=== PATIENT | male | born 1940 | race Caucasian/White ===

== ENCOUNTER → 2016-05-04 | Outpatient (CLI) | payer MEDICARE, OTHER ==
[~2016-05-04] MED LIST: ASA325 MG PO; CELEBREX200 MG PO; CLARITIN DPS10 MG PO; OXY IR DPS5 MG PO; PREDNISONE5 MG PO; PROTONIX40 MG PO; SENOKOT S1 TAB PO; THERAPEUTIC MUL1 TAB PO; TYLENOL DPS325 MG PO; ULTRAM DPS50 MG PO; VISTARIL-DPS50 MG PO
== END | disposition home or self-care (01) ==
LOC: RAD.S 05-02 16:01 → PTH.S 13:00 → RAD.S 13:45
DX: H90.41 Sensorineural hearing loss, unilateral, right ear, with unrestricted hearing on the contralateral side (principal)

== ENCOUNTER → 2016-05-17 | Outpatient (CLI) | payer MEDICARE, OTHER | END | disposition home or self-care (01) | LOC: PTH.S 08:16 | DX: Z01.818 Encounter for other preprocedural examination (principal) ==

== ENCOUNTER 2016-05-22 11:05 | Inpatient (IN) | payer MEDICARE, OTHER ==
[~2016-05-22] VITALS: Ht 180.3 cm; Wt 85.7 kg
--- NOTE | 2016-05-22 15:54 | HP ---
ADMIT: 05/22/2016 RM/LOC: W.08 [facility] MR#: [id number] [address] [address] FABIO HAYWARD [address] [place] [address] Pre-OP History and Physical SEX: M AGE: 76 : 1940 DATE OF SERVICE: CHIEF COMPLAINT: Left knee pain. HISTORY OF PRESENT ILLNESS: The patient is a 76-year-old white male with left knee DJD. He has failed nonoperative treatment with medications, cortisone shots, etc,. PAST MEDICAL HISTORY: Significant for GERD, knee arthroscopy, cataract extraction. MEDICATIONS: 1. Aspirin. 2. Multivitamin. 3. Protonix. 4. Pseudoephedrine. SOCIAL HISTORY: The patient does not smoke or regularly drink alcohol. ALLERGIES: NO ALLERGIES. PHYSICAL EXAMINATION: HEENT: Normocephalic and atraumatic. CV: Regular rate and rhythm. LUNGS: Benign. ABDOMEN: Benign. NEUROLOGIC: Awake and oriented x3. MUSCULOSKELETAL: The patient has full extension, 115 degrees of flexion. Slight varus orientation of the knee. Tender in medial joint line and the patellofemoral joint. No ligamentous laxity. IMAGING DATA: X-rays show left knee DJD, [id number] medially, and patellofemoral narrowing. ASSESSMENT AND PLAN: Left knee degenerative joint disease. At this point in time, we will plan left total knee arthroplasty. The patient understands the risks and benefits of the surgical intervention, which include, but not limited to infection, DVT, arthrofibrosis, neurovascular injury, early loosening, , etc., and desires to proceed. He will see Dr. Aguero for preop medical clearance and follow him postoperatively in the hospital for anticoagulation and any medical issues that may arise. Please refer to that H and P for any in-depth medical issues or medication changes. Clifton Hitchcock MD/ mary JOB #: [id number] CC: Clifton Hitchcock, Attending Physician ADMIT: 05/22/2016 RM/LOC: W.08 [facility] MR#: [id number] [address] [address] FABIO HAYWARD [address] [place] [address] Pre-OP History and Physical SEX: M AGE: 76 : 1940 Harsh Aguero, Family Physician
[2016-05-25] MEDS ORDERED: PREDNISONE5 MG PO (21:03)
[2016-05-25] MEDS ORDERED: PROTONIX40 MG PO (21:03)
[2016-05-25] MEDS ORDERED: ASA325 MG PO (21:03)
[2016-05-25] MEDS ORDERED: THERAPEUTIC MUL1 TAB PO (21:04)
[2016-05-25] MEDS ORDERED: TYLENOL DPS325 MG PO (21:04)
[2016-05-25] MEDS ORDERED: CLARITIN DPS10 MG PO (21:04)
[2016-05-25] MEDS ORDERED: CELEBREX200 MG PO (21:04)
[2016-05-25] MEDS ORDERED: SENOKOT S1 TAB PO (21:04)
[2016-05-25] MEDS ORDERED: OXY IR DPS5 MG PO (21:05)
[2016-05-25] MEDS ORDERED: ULTRAM DPS50 MG PO (21:05)
[2016-05-25] MEDS ORDERED: VISTARIL-DPS50 MG PO (21:05)
--- NOTE | 2016-07-03 15:26 | DS ---
ADMIT: 05/22/2016 RM/LOC: 530 [facility] MR#: [id number] 2620 [facility] [address] [place], [place] [address] FABIO HAYWARD Ronald [address] [place] [address] General Discharge Summary SEX: M AGE: 76 : 1940 ADMISSION DATE: 05/22/2016 DISCHARGE DATE: 05/24/2016 REASON FOR ADMISSION: Elective left total knee arthroplasty after failing conservative treatment. PREOPERATIVE DIAGNOSIS: Left knee degenerative joint disease. POSTOPERATIVE DIAGNOSIS: Left knee degenerative joint disease. PROCEDURE PERFORMED: Left total knee arthroplasty. SURGEON: Clifton Hitchcock MD FINANCIAL SERVICES DIRECTOR: Devin Zuniga PA-C ESTIMATED BLOOD LOSS: Minimal. COMPLICATIONS: None. ACTIVE MEDICAL PROBLEMS: Chronic back pain, hyperplastic colon polyp, polymyalgia rheumatica, gastroesophageal reflux disease without esophagitis, and lichen planus. HOSPITAL COURSE: The patient was admitted on 05/22/2016 for elective left total knee arthroplasty done successfully without any complications by Dr. Clifton Htichcock. The patient tolerated the procedure well. The patient postoperatively did not have any pain; however, he was having some nausea from pain medications. He was prescribed Vistaril 50 mg every 6 hours as needed for sleep, restless, pain, nausea, and itching. He did also suffer from acute blood loss anemia. His hemoglobin dropped to 12.6 on 05/24/2016, but he remained hemodynamically stable and did not require blood transfusion. By postoperative day #2, he was safe and participated well with physical therapy. He was stable and ready for discharge home with plans for outpatient physical therapy. DISCHARGE MEDICATIONS: 1. Pantoprazole 40 mg at bedtime. 2. Aspirin 325 mg at bedtime. 3. Prednisone 10 mg every morning. 4. Loratadine 10 mg every day. 5. Multivitamin every day. ADMIT: 05/22/2016 RM/LOC: 530 [facility] MR#: [id number] 2620 [facility] [address] [place], [place] [address] FABIO HAYWARD [address] [place] [address] General Discharge Summary SEX: M AGE: 76 : 1940 6. Celebrex 200 mg twice daily. 7. Senokot 2 tablets twice daily. 8. Tylenol 650 mg every 6 hours as needed for pain. 9. Tramadol 50 mg 1 to 2 tablets every 6 hours as needed for pain. 10.Oxycodone IR 5 to 10 mg every 4 hours as needed for breakthrough pain. 11.Vistaril 50 mg every 6 hours as needed for pain, restlessness, itching, and nausea. DISCHARGE INSTRUCTIONS: The patient was discharged home with plans for outpatient physical therapy per total knee arthroplasty protocol. Follow up in the orthopedic office in 2 weeks for wound check, in 6 weeks with x-ray. Follow up with primary care as directed. PALOMA Rocha / Clifton Hitchcock MD / mary JOB #: [id number] CC: Clifton Hitchcock MD, Attending Physician Harsh Aguero MD, Family Physician
== END 2016-05-24 16:05 | disposition home or self-care (01) | DRG 470 ==
LOC: WOR 11:26 → 5MS 11:26
PROVIDERS: ADMIT Orthopaedic Surgery
PROC: 0SRD0J9 Replacement of Left Knee Joint with Synthetic Substitute, Cemented, Open Approach (ICD-10-PCS; principal; 2016-05-22)
DX: M17.12 Unilateral primary osteoarthritis, left knee (principal); D62 Acute posthemorrhagic anemia; K21.9 Gastro-esophageal reflux disease without esophagitis; M35.3 Polymyalgia rheumatica; L43.9 Lichen planus, unspecified; M54.9 Dorsalgia, unspecified; Z79.52 Long term (current) use of systemic steroids; Z79.82 Long term (current) use of aspirin; Z86.010 Personal history of colon polyps

== ENCOUNTER 2016-05-26 21:15 | Emergency (ER) | payer MEDICARE, OTHER ==
--- NOTE | 2016-05-27 23:16 | ER ---
ADMIT: 05/26/2016 RM/LOC: ER [facility] MR#: [id number] [address] [facility] [address] [place], [place] [address] BASSAMFABIO GARCIA [address] [place] [address] Emergency Room Report SEX: M AGE: 76 : 1940 DATE: 05/26/2016 ADDENDUM: See T-sheet for complete H and P. HISTORY OF PRESENT ILLNESS: A 76-year-old male, who comes into the ER for evaluation of some increased redness on his left knee after he had a total left knee replacement done earlier in the week. He states that since this morning, he has had slightly increased redness, which he believes has gotten worse through the course today and slightly increased swelling. He has no increased pain in the knee at all, but does feel it is little more warm when he touches the area. He denies any fevers, chills, nausea, or vomiting. PHYSICAL EXAMINATION: He does have an area of erythema on primarily the medial aspect of his knee, extending proximally on the medial aspect of his thigh. We did outline the area with a skin marking pen. This area is somewhat warm to touch. There is no areas of fluctuance I can appreciate. He is neurovascularly intact distally. We did do some lab work in the ER, which shows his procalcitonin 0.06, his lactic acid is 1.5. Electrolytes were unremarkable other than a glucose of 135, and his white count is 8.4. He was afebrile here. Based on the examination, I believe he might have a superficial cellulitis started, but is having no increased pain in the knee itself and it is unlikely he has an infection of his joint. We did start a dose of antibiotics here in the emergency department and he received 1 g of Rocephin. We will be discharging him home on Keflex to be taken orally for the next week. I did speak to Dr. Hitchcock, who is quality control checker this evening and he is the patient's surgeon. He is to contact Dr. Hitchcock's office on Saturday to update how he is doing and to arrange for a followup appointment. DIAGNOSIS: Cellulitis of left leg. Johnny Estrada MD/ mary JOB #: [id number] CC: Mart Evangelista MD, Attending Physician Harsh Aguero MD, Family Physician
== END 2016-05-27 | disposition home or self-care (01) ==
LOC: ER 21:15
DX: L03.116 Cellulitis of left lower limb (principal); Z88.8 Allergy status to other drugs, medicaments and biological substances; Z79.82 Long term (current) use of aspirin; Z79.899 Other long term (current) drug therapy

== ENCOUNTER 2016-05-27 21:50 | Emergency (ER) | payer MEDICARE, OTHER ==
--- NOTE | 2016-06-07 19:58 | ER ---
ADMIT: 05/27/2016 RM/LOC: ER [facility] MR#: [id number] [id number] [place], [place] [address] BASSAMFABIO GARCIA Ronald [address] [place] [address] Emergency Room Report SEX: M AGE: 76 : 1940 DATE: 05/27/2016 CHIEF COMPLAINT: Burning after he took a pill. HISTORY OF PRESENT ILLNESS: The patient is a 76-year-old male, who was seen in the ER last night and diagnosed with cellulitis. He was given a prescription for Keflex, which he has started taking today. The patient admits that he has difficulty taking pills at times since he feels like sometimes pills get stuck in his throat. He did take his Keflex this evening, thought it went down fine, but about 20 minutes to half an hour after he took it, he is confident he felt like the pill opened up in his esophagus and he had some burning. He wanted to come in to get checked out because of that. He states he is unwilling to take any Keflex because of the size of the pill and the problems he has had with this so far. He states that the cellulitis that he had been treated is actually looking better and he is feeling better. PAST MEDICAL HISTORY: See note from last night. MEDICATIONS: See nurse's note. ALLERGIES: SEE NURSE'S NOTE. PHYSICAL EXAMINATION: GENERAL: The patient is alert, in no distress. He is handling his own secretions fine. HEENT: Head is atraumatic. Posterior oropharynx is patent. There is no erythema or swelling. NECK: Palpation of the neck reveals no anterior swelling. He is not having any stridor. LUNGS: Clear to auscultation. HEART: Regular rate and rhythm. SKIN: Color is normal. He has no cyanosis, no diaphoresis. ADMIT: 05/27/2016 RM/LOC: ER [facility] MR#: [id number] [address] [address] FABIO HAYWARD Ronald [address] [place] [address] Emergency Room Report SEX: M AGE: 76 : 1940 MEDICAL DECISION MAKING: Based on my assessment, the patient likely had some local mild irritation to what sounds like the Keflex capsules opening in his esophagus. At this point, I will be switching to a tablet form of medication to treat his cellulitis, so we put him on doxycycline. He was given a dose of Carafate in the Emergency Department because he had this sensation of a mild burning in his throat and he will be discharged home to get doxycycline filled tomorrow and follow up with Dr. Hitchcock as instructed. DIAGNOSES: 1. Cellulitis. 2. Medication intolerance. Johnny Estrada MD/ mary JOB #: [id number] CC: Mart Evangelista MD, Attending Physician Harsh Aguero MD, Family Physician
== END 2016-05-27 22:26 | disposition home or self-care (01) ==
LOC: ER 21:50
DX: T36.1X5A Adverse effect of cephalosporins and other beta-lactam antibiotics, initial encounter (principal); L03.90 Cellulitis, unspecified

== ENCOUNTER 2016-06-01 00:23 | Emergency (ER) | payer MEDICARE, OTHER ==
--- NOTE | 2016-06-01 22:59 | ER ---
ADMIT: 06/01/2016 RM/LOC: ER [facility] MR#: [id number] 2620 [facility] [address] [place], [place] [address] FABIO HAYWARD Ronald [address] [place] [address] Emergency Room Report SEX: M AGE: 76 : 1940 DATE: 06/01/2016 TIME: 0023 Please refer to my T-sheet for complete H and P. HISTORY OF PRESENT ILLNESS: Briefly, the patient is a 76-year-old, who is about a week status post left knee surgery. He had been taking Ultram, but had problems with his bladder, so he stopped that. They just started hydrocodone today. He has taken 3 pills and the last one made him really nauseous and sweaty. It was about 4 hours ago. By the time he gets here, he states now it is all better. He is pretty sure he cannot tolerate. He has tried oxycodone before and had the similar episode. He said his knee pain is controlled, but he states he cannot tolerate the medications. PHYSICAL EXAMINATION: VITAL SIGNS: Here are stable. HEENT: Grossly normal. LUNGS: Clear. HEART: Regular. ABDOMEN: Soft. EXTREMITIES: His left knee is postop. There was a cellulitis, he has been on antibiotics, it is way improved compared to the lines that were drawn. EMERGENCY DEPARTMENT COURSE: I gave him Zofran 4 mg ODT, 25 mg p.o. Benadryl, and 500 mg p.o. Tylenol, he is ready for discharge. ASSESSMENT: 1. Medication side effects. 2. Status post left total knee arthroplasty. PLAN: Stop the hydrocodone, use just Tylenol and Benadryl to help him sleep. Return if worse, and follow up with Dr. Hitchcock as needed. Octavio Rosa MD/ mary JOB #: [id number] CC: Octavio Rsoa MD, Attending Physician Harsh Aguero MD, Family Physician Clifton Hitchcock MD
== END 2016-06-01 01:40 | disposition home or self-care (01) ==
LOC: ER 00:23
DX: R42 Dizziness and giddiness (principal); T40.2X5A Adverse effect of other opioids, initial encounter; K21.9 Gastro-esophageal reflux disease without esophagitis; Z96.652 Presence of left artificial knee joint